=== PATIENT | male | born 2000 | race Asian ===

== ENCOUNTER 2022-06-08 17:56 | Emergency (ER) | payer OTHER ==
[~2022-06-08] VITALS: Ht 170.2 cm; Wt 72.6 kg
[2022-06-08 18:48] LABS: PLATELET COUNT 142 K/uL (142-355)
[2022-06-08 18:49] LABS: POTASSIUM 3.4 mmol/L (3.6-5.2)
[2022-06-08 20:09] VITALS: BP 128/80; TEMP 98
== END 2022-06-08 20:09 | disposition home or self-care (01) ==
LOC: ED 17:56
PROVIDERS: Emergency Medicine
DX: J06.9 Acute upper respiratory infection, unspecified (principal)
CPT/HCPCS: 80048; 85027; 87502; 87651; 96365; 96375; 99284; J0696; J1100; J2405

== ENCOUNTER 2022-07-02 18:21 | Emergency (ER) | payer OTHER ==
[~2022-07-02] VITALS: Ht 170.2 cm; Wt 72.6 kg
[2022-07-02 19:33] LABS: PLATELET COUNT 152 K/uL (142-355)
[2022-07-02 19:39] LABS: POTASSIUM 3.9 mmol/L (3.6-5.2)
[2022-07-02 21:27] VITALS: BP 128/88; TEMP 98.6
== END 2022-07-02 21:27 | disposition home or self-care (01) ==
LOC: ED 18:21
PROVIDERS: Emergency Medicine
DX: F10.90 Alcohol use, unspecified, uncomplicated (principal)
CPT/HCPCS: 36415; 80053; 80320; 82150; 83690; 85027; 99283; Q9963

== ENCOUNTER 2022-08-27 19:00 | Emergency (ER) | payer OTHER ==
[~2022-08-27] VITALS: Ht 170.2 cm; Wt 72.6 kg
[2022-08-27 20:35] VITALS: BP 121/71; TEMP 98.1
== END 2022-08-27 20:40 | disposition home or self-care (01) ==
LOC: ED 19:00
DX: R10.13 Epigastric pain (principal)
CPT/HCPCS: 99282

== ENCOUNTER 2022-11-05 20:39 | Emergency (ER) | payer OTHER ==
[~2022-11-05] VITALS: Ht 170.2 cm; Wt 73.5 kg
[2022-11-05 21:35] VITALS: BP 150/69; TEMP 97.9
== END 2022-11-05 21:35 | disposition home or self-care (01) ==
LOC: ED 20:39
DX: K29.60 Other gastritis without bleeding (principal)
CPT/HCPCS: 99283